=== PATIENT | female | born 1995 | race Caucasian/White ===

== ENCOUNTER → 2017-06-17 12:03 | Outpatient (CLI) | payer OTHER, SELFPAY ==
[2017-06-17 13:04] LABS: Alanine Aminotransfer ALT/SGPT 31 U/L (13-56)
[2017-06-18 11:18] LABS: HIV - WCH Non-Reactive (Nonreactive)
[2017-06-18 14:59] LABS: Hep B Surface Antibodies Non Reactive (.); Hep C Antibodies <0.1 s/co ratio (0.0-0.9)
== END ==
PROVIDERS: Visit Provider Physician Assistant
DX: Z77.21 Contact with and (suspected) exposure to potentially hazardous body fluids (principal); S51.851A Open bite of right forearm, initial encounter; Y04.1XXA Assault by human bite, initial encounter
CPT/HCPCS: 36415; 84460; 86703; 86706; 86803

== ENCOUNTER → 2017-09-08 15:33 | Outpatient (CLI) | payer OTHER, SELFPAY ==
--- NOTE | 2017-09-08 15:36 | RAD_ITS ---
STUDY: X-RAY - LEFT FOOT CLINICAL: Female, 22 years old. Trauma TECHNIQUE: 3 view(s) of the foot. COMPARISON: None. FINDINGS: There is no evidence of fracture or dislocation. There are no significant degenerative changes. There are no radiodense foreign bodies. RAD/Foot min 3 Views IMPRESSION: No fracture or dislocation. Electronically Signed: Robb Saavedra, at 22:46 EDT Tel , Service support ,
--- NOTE | 2017-09-08 15:36 | RAD_ITS ---
STUDY: X-RAY - LEFT ANKLE REASON FOR EXAM: Female, 22 years old. Trauma TECHNIQUE: 3 view(s) of the ankle. COMPARISON: None. FINDINGS: There is no evidence of fracture or dislocation. There are no significant degenerative changes. There are no radiodense foreign bodies. RAD/Ankle min 3 Views IMPRESSION: No fracture or dislocation. Electronically Signed: Robb Saavedra, at 22:44 EDT Tel , Service support ,
== END ==
PROVIDERS: Visit Provider Physician Assistant
DX: M25.572 Pain in left ankle and joints of left foot (principal); M79.672 Pain in left foot
CPT/HCPCS: 73610; 73630